=== PATIENT | female | born 1955 | race Caucasian/White ===

== ENCOUNTER 2018-11-03 11:45 | Emergency (ER) | payer OTHER ==
[~2018-11-03] VITALS: Ht 154.9 cm; Wt 98.9 kg
[~2018-11-03 11:45] MED LIST: CYCL5TAB PO; DIPH1TAB45 PO; LATANOPROST; LEVO500T69 PO; MELO-195 PO; METH4TAB PO; NF-DOR2% OD; ORPH100T PO; TML5OP2.5 OD; TRAM-21 PO; Z PACK; [UNRECOGNIZED DRUG - OTHER]
--- NOTE | 2018-11-03 12:05 | ED Integumentary General ---
General Chief Complaint: Skin/Wound Problems Stated Complaint: RASH Source: patient, family History of Present Illness Date Seen by Provider: Nov 03, 2018 Time Seen by Provider: 11:59 Initial Comments This 63-year-old female presents with a persistent rash over her thoracoabdominal area of 2 weeks' duration. Patient is complaining of persistent itching despite using aoty-wkk-dlelfdo medications for same. Patient denies associated fever or chills. She's had no new prescribed medi cations. She works in a f[employer]. There's been a recent case of zoster. Next Patient denies similar episode in the past. Allergies and Home Medications Allergies Coded Allergies: No Known Drug Allergies (Unverified , 07/18/13) Home Medications Cyclobenzaprine Hcl 5 Mg Tablet, 1 EACH PO Q8HR, (Reported) Levofloxacin 500 Mg Tab, 1 EACH PO DAILY Prescribed by: LETY MINA on 08/05/142116 Meloxicam 15 Mg Tablet, 15 MG PO DAILY, (Reported) Orphenadrine Citrate 100 Mg Tablet.sa, 100 MG PO BID FOR MUSCLE SPASMS Prescribed by: LETY MINA on 08/05/142116 Tramadol Hcl 50 Mg Tablet, 50 MG PO Q4H Prescribed by: LETY MINA on 08/05/142116 Patient Home Medication List Home Medication List Reviewed: Yes Review of Systems Review of Systems Constitutional: No chills, No fever EENTM: No ear pain Respiratory: No cough Cardiovascular: No chest pain Gastrointestinal: No abdominal pain, No diarrhea, No nausea, No vomiting Genitourinary: No dysuria, No frequency Musculoskeletal: no symptoms reported Skin: see HPI, rash Psychiatric/Neurological: No Symptoms Reported Endocrine: No Symptoms Reported Past Rdyhagh-Bvirnz-Tpptiz Hx Past Med/Social Hx: Reviewed Nursing Past Med/Soc Hx Patient Social History Recent Foreign Travel: No Contact w/Someone Who Travel: No Past Medical History Section, Eye Surgery, Tubal Ligation 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, Menopausal Irritable Bowel Cataract, Glaucoma Physical Exam Vital Signs Capillary Refill : General Appearance: WD/WN, no apparent distress HEENT: normal ENT inspection Neck: normal inspection Cardiovascular: regular rate, rhythm Respiratory: chest non-tender, lungs clear Gastrointestinal: normal bowel sounds, non tender, soft Back: normal inspection Extremities: normal range of motion Neurologic/Psychiatric: no motor/sensory deficits, alert Skin: normal color, warm/dry, rash (there is an erythematous resolving rash consisting of small circular erythematous excoriated areas primarily over the thoracoabdominal area. The initial lesions are resolving which were on the patient's left back in the lower thoracic region.) Skin Problem Location: torso Skin Problem Character: erythema, rash, urticarial Progress/Results/Core Measures Progress Progress Note : Time: 12:04 Progress Note I discussed findings with patient and her . It appears that the rash is in the process of resolving. It started approximately 2 weeks ago and no new lesions have been noted in the past week. I'll treat the patient with triamcinolone topically and Benadryl and Pepcid orally. As patient call her doctor Sunday and return if any problems Departure Impression Primary Impression: Rash Disposition: HOME, SELF-CARE Condition: Unchanged Departure-Patient Inst. Decision time for Depature: 12:05 Referrals: [facility] ([place]P/Family) Primary Care Physician Patient Instructions: Skin Rash (DC) Add. Discharge Instructions: Triamcinolone, Benadryl, and Pepcid as prescribed. Close follow-up with your caregiver at [facility] on Sunday. Return if any problems or questions. All discharge instructions reviewed with patient and/or family. Voiced understanding. Scripts Triamcinolone Acet (Triamcinolone Acetonide 0.1% Ointment) 15 Gm Oint 80 GM TP TID for Rash, #1 TUBE Prov: BEATRICE PENA MD 11/03/18 BEATRICE PENA MD Nov 03, 2018 12:05
[2018-11-03] MEDS ORDERED: TR1O15 TP (12:07)
[2018-11-03 12:11] VITALS: BP 148/79
== END 2018-11-03 12:11 | disposition home or self-care (01) ==
LOC: EDUNIT# 11:45 → ER 11:46
DX: R21 Rash and other nonspecific skin eruption (principal); K58.9 Irritable bowel syndrome, unspecified; Z98.51 Tubal ligation status
CPT/HCPCS: 99282

== ENCOUNTER 2019-04-20 17:50 | Emergency (ER) | payer OTHER ==
[~2019-04-20] VITALS: Ht 154 cm; Wt 100.7 kg
[~2019-04-20 17:50] MED LIST changes: +TR1O15 TP
--- NOTE | 2019-04-20 19:07 | ED Lower Extremity ---
General Chief Complaint: Lower Extremity Stated Complaint: R LEG SWELLING Nursing Triage Note: TO TRIAGE WITH COMPLAINS OF RIGHT LEG PAIN X2 WEEKS. STATES IT IS GETTING HARD TO WORK IN THE [employer] BECAUSE OF THE PAIN. Nursing Sepsis Screen: No Definite Risk Source: patient Exam Limitations: no limitations (KILLIAN MELTON) History of Present Illness Date Seen by Provider: Apr 20, 2019 Time Seen by Provider: 19:07 (KILLIAN MELTON) Initial Comments Pt complains of two weeks of increasing, diffuse lower extremity swelling and leg pain beyond the knee. Pain increases throughout the day with being on her feet/working and is achy in nature. Has not tried anything for the pain. Denies any prior cardiac work-up, history of interventions, chest pain, shortness of air or cough. Does admit she has to sit down to rest at work in order to catch her breath. Severity: moderate Pain/Injury Location: bilateral leg, bilateral knee, bilateral foot Modifying Factors: Improves With Rest (VIKAS MCGILL MED STUDENT) Initial Comments Has had increasing cough and states that she feels like she's had some fevers recently. 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 Onset: other (2 weeks) Modifying Factors: Improves With Rest; Worse With Other (prolonged standing) (SHAE MC MD) Allergies and Home Medications Allergies Coded Allergies: No Known Drug Allergies (Unverified , 11/03/18) Home Medications Furosemide 40 Mg Tablet, 40 MG PO DAILY Prescribed by: SHAE MC on 04/20/192119 Patient Home Medication List Home Medication List Reviewed: Yes (KILLIAN MELTON) Home Medication List Reviewed: Yes (VIKAS MCGILL MED STUDENT) Home Medication List Reviewed: Yes (SHAE MC MD) Review of Systems Constitutional: No chills, No fever, No malaise EENTM: No ear pain, No eye pain, No vision loss Respiratory: cough; No dyspnea on exertion, No short of breath Cardiovascular: No chest pain; edema; No palpitations Gastrointestinal: No abdominal pain, No nausea, No vomiting Musculoskeletal: see HPI; No back pain, No joint pain Psychiatric/Neurological: Denies Numbness, Denies Tingling (VIKAS MCGILL MED STUDENT) All Other Systems Reviewed Negative Unless Noted: Yes (SHAE MC MD) Past Atiovtn-Jubfnd-Nfjubx Hx Past Med/Social Hx: Reviewed Nursing Past Med/Soc Hx (SHAE MC MD) Patient Social History Alcohol Use: Denies Use Recreational Drug Use: No Smoking Status: Former Smoker 2nd Hand Smoke Exposure: Yes Recent Foreign Travel: No Contact w/Someone Who Travel: No Recent Infectious Disease Expo: No Recent Hopitalizations: No (KILLIAN MELTON) Immunizations Up To Date Tetanus Booster (TDap): Unknown (KILLIAN MELTON) Seasonal Allergies Seasonal Allergies: Yes (KILLIAN MELTON) Past Medical History Surgeries: Yes (EYE- CATARACTS, ) Section, Eye Surgery, Tubal Ligation Respiratory: No Cardiac: Yes (MURMUR WHEN YOUNG) Heart Murmur 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 Genitourinary: No Gastrointestinal: Yes Irritable Bowel Musculoskeletal: No Endocrine: No HEENT: Yes (SINUSITIS) Cataract, Glaucoma Cancer: No Psychosocial: No Integumentary: No Blood Disorders: No (KILLIAN MELTON) Family Medical History Reviewed Nursing Family Hx (SHAE MC MD) No Pertinent Family Hx (SHAE MC MD) Physical Exam Vital Signs Vital Signs - First Documented 04/20/19 17:50 Temp 36.7 Pulse 69 Resp 16 B/P (MAP) 166/81 (109) Pulse Ox 97 O2 Delivery Room Air (VIKAS MCGILLMED STUDENT) Vital Signs Capillary Refill : Less Than 3 Seconds (KILLIAN MELTON) Height, Weight, BMI Height: 5'1.00" Weight: 218lbs. oz. 98.825497ey; 42.00 BMI Method:Stated (KILLIAN MELTON) General Appearance: WD/WN, no apparent distress HEENT: TMs normal, pharyngeal erythema, other (b/l oblong pupils from cataract surgery, beefy red nasal septum ) Neck: non-tender, supple, lymphadenopathy (R) (posterior cervical ) Cardiovascular: regular rate, rhythm, no gallop, no murmur Respiratory: chest non-tender, lungs clear, normal breath sounds, no respirator y distress, no accessory muscle use Gastrointestinal: non tender, soft Back: no CVA tenderness, no vertebral tenderness Legs: bilateral leg soft tissue tenderness (diffuse tenderness to palpation ), bilateral leg swelling, bilateral leg other (+2 pitting pretibial edema ) Knees: bilateral knee pain, bilateral knee soft tissue tenderness Ankles: bilateral ankle normal range of motion, bilateral ankle no evidence of injury, bilateral ankle pain, bilateral ankle soft tissue tenderness, bilateral ankle swelling Feet: bilateral foot swelling (+3 pitting pedal edema ) Neurologic/Tendon: normal sensation, normal motor functions Neurologic/Psychiatric: alert, oriented x 3 Skin: normal color, warm/dry Lymphatic: no adenopathy (supra/infraclavicular) (VIKAS MCGILL,MED STUDENT) General Appearance: WD/WN, no apparent distress HEENT: TMs normal, pharyngeal erythema Neck: non-tender, supple Cardiovascular: regular rate, rhythm, no murmur Respiratory: lungs clear, normal breath sounds, no respiratory distress, no accessory muscle use Gastrointestinal: non tender, soft Neurologic/Psychiatric: alert, oriented x 3 Skin: normal color, warm/dry, other (bilateral lower extremity edema and about 2+ to the level below the knee.) (SHAE MC MD) Progress/Results/Core Measures Results/Orders Lab Results Laboratory Tests Test 04/20/19 19:30 Range/Units White Blood Count 4.3 4.3-11.0 10^3/uL Red Blood Count 4.22 L 4.35-5.85 10^6/uL Hemoglobin 13.4 11.5-16.0 G/DL Hematocrit 42 35-52 % Mean Corpuscular Volume 100 H 80-99 FL Mean Corpuscular Hemoglobin 32 25-34 PG Mean Corpuscular Hemoglobin Concent 32 32-36 G/DL Red Cell Distribution Width 12.5 10.0-14.5 % Platelet Count 238 130-400 10^3/uL Mean Platelet Volume 9.7 7.4-10.4 FL Neutrophils (%) (Auto) 53 42-75 % Lymphocytes (%) (Auto) 28 12-44 % Monocytes (%) (Auto) 15 H 0-12 % Eosinophils (%) (Auto) 3 0-10 % Basophils (%) (Auto) 1 0-10 % Neutrophils # (Auto) 2.3 1.8-7.8 X 10^3 Lymphocytes # (Auto) 1.2 1.0-4.0 X 10^3 Monocytes # (Auto) 0.7 0.0-1.0 X 10^3 Eosinophils # (Auto) 0.1 0.0-0.3 10^3/uL Basophils # (Auto) 0.0 0.0-0.1 10^3/uL Sodium Level 142 135-145 MMOL/L Potassium Level 4.1 3.6-5.0 MMOL/L Chloride Level 103 98-107 MMOL/L Carbon Dioxide Level 28 21-32 MMOL/L Anion Gap 11 5-14 MMOL/L Blood Urea Nitrogen 14 7-18 MG/DL Creatinine 0.84 0.60-1.30 MG/DL Estimat Glomerular Filtration Rate > 60 BUN/Creatinine Ratio 17 Glucose Level 92 70-105 MG/DL Calcium Level 8.7 8.5-10.1 MG/DL Corrected Calcium 8.9 8.5-10.1 MG/DL Total Bilirubin 0.4 0.1-1.0 MG/DL Aspartate Amino Transf (AST/SGOT) 19 5-34 U/L Alanine Aminotransferase (ALT/SGPT) 16 0-55 U/L Alkaline Phosphatase 112 40-136 U/L B-Type Natriuretic Peptide 50.1 <100.0 PG/ML Total Protein 6.8 6.4-8.2 GM/DL Albumin 3.8 3.2-4.5 GM/DL (VIKAS MCGILL,MED STUDENT) Vital Signs/I&O 04/20/19 17:50 Temp 36.7 Pulse 69 Resp 16 B/P (MAP) 166/81 (109) Pulse Ox 97 O2 Delivery Room Air (VIKAS MCGILL,MED STUDENT) Blood Pressure Mean: 109 Progress Progress Note : Time: 19:21 Progress Note Seen and evaluated. Ordering CBC,CMP with BNP. (VIKAS MCGILL,MED STUDENT) Progress Note : Progress Note I have seen and evaluated the patient and agree with above except as indicated. Have directed the plan of care. We will check basic labs, chest x-ray and have added influenza screen given her cough and report of subjective fevers. Monitor patient. 2114: Overall feeling better. We will give her 3 days of Lasix to help with the fluids and I will write her off for the next 2 days per her request. Lasix 40 mg by mouth now. Discharged home with return precautions. Patient verbalize understanding instructions and agreement with plan. (SHAE MC MD) Diagnostic Imaging Diagonstic Imaging: Xray Plain Films/CT/US/NM/MRI: chest Comments [facility] [place] NAME: [facility]HOMY [facility] REC#: [id number] PT STATUS: REG ER : 1955 PHYSICIAN: SHAE MC MD ADMIT DATE: 04/20/19/ER Signed Date of Exam:04/20/19 CHEST PA/LAT (2 VIEW) INDICATION: Congestion COMPARISON: None. FINDINGS: Frontal and lateral views the chest demonstrate clear lungs bilaterally. The heart size is normal. There is no pneumothorax. Osseous structures are normal. IMPRESSION: No acute findings. Normal chest. Dictated by: Dictated on workstation # [id number] Dict: 04/20/191941 Trans: 04/20/191941 [facility] [id number] Interpreted by: ANGELIQUE MAR Electronically signed by: ANGELIQUE MAR 04/20/191941 (VIKAS MCGILL,MED STUDENT) Departure Communication (Admissions) Patient care provided by by Hever Mc MD and Vikas Mcgill. (KILLIAN MELTON) Impression Primary Impression: Dependent edema Additional Impression: Upper respiratory infection Qualified Codes: J06.9 - Acute upper respiratory infection, unspecified Disposition: 01 HOME, SELF-CARE Condition: Improved Departure-Patient Inst. Decision time for Depature: 21:17 (SHAE MC MD) Referrals: [facility] [place] Primary Care Physician Patient Instructions: Dependent Edema (DC), Viral Upper Respiratory Infection, Adult (DC) Add. Discharge Instructions: All discharge instructions reviewed with patient and/or family. Voiced understanding. Take medications as directed. Avoid salt in your diet. Follow-up with your DrZaira in a few days for recheck. You should elevate your feet several times daily to reduce swelling. Return for worse pain, fever, vomiting, weakness, breathing problems or other concerns as needed. You may take Tylenol and/or ibuprofen as needed for fever or pain per package directions. You may use umff-art-ladwqdk Afrin nasal spray or the generic, 12 hour relief, 2 sprays to each nostril twice daily for 3 days only and then stop. Do not use for more than 3 days. Scripts Furosemide (Furosemide) 40 Mg Tablet 40 MG PO DAILY, #2 TAB 0 Refills Prov: SHAE MC MD 04/20/19 Work/School Note: Work Release Form Date Seen in the Emergency Department: Apr 20, 2019 Return to Work: Apr 23, 2019 Restrictions: No Restrictions KILLIAN MELTON Apr 20, 2019 19:07 VIKAS MCGILL,MED STUDENT Apr 20, 2019 19:23 SHAE MC MD Apr 20, 2019 20:34
[2019-04-20 19:41] LABS: BASOPHILS % (AUTO) 1 % (0-10); EOSINOPHILS # (AUTO) 0.1 10^3/uL (0.0-0.3); EOSINOPHILS % (AUTO) 3 % (0-10); HEMATOCRIT 42 % (35-52); HEMOGLOBIN 13.4 G/DL (11.5-16.0); LYMPHOCYTES # (AUTO) 1.2 X 10^3 (1.0-4.0); LYMPHOCYTES % (AUTO) 28 % (12-44); MEAN CORPUSCULAR HEMOGLOBIN 32 PG (25-34); MEAN CORPUSCULAR HGB CONC 32 G/DL (32-36); MEAN CORPUSCULAR VOLUME 100 FL (80-99); MEAN PLATELET VOLUME 9.7 FL (7.4-10.4); MONOCYTES # (AUTO) 0.7 X 10^3 (0.0-1.0); MONOCYTES % (AUTO) 15 % (0-12); NEUTROPHILS # (AUTO) 2.3 X 10^3 (1.8-7.8); NEUTROPHILS % (AUTO) 53 % (42-75); PLATELET COUNT 238 10^3/uL (130-400); RED CELL DISTRIBUTION WIDTH 12.5 % (10.0-14.5); WHITE BLOOD COUNT 4.3 10^3/uL (4.3-11.0)
--- NOTE | 2019-04-20 19:43 | Diagnostic Imaging Report ---
INDICATION: Congestion COMPARISON: None. FINDINGS: Frontal and lateral views the chest demonstrate clear lungs bilaterally. The heart size is normal. There is no pneumothorax. Osseous structures are normal. IMPRESSION: No acute findings. Normal chest. Dictated by: Dictated on workstation # [id number]
[2019-04-20 20:01] LABS: ALANINE AMINOTRANSFERASE 16 U/L (0-55); ALBUMIN 3.8 GM/DL (3.2-4.5); ALKALINE PHOSPHATASE 112 U/L (40-136); BILIRUBIN,TOTAL 0.4 MG/DL (0.1-1.0); BUN/CREATININE RATIO 17; CALCIUM 8.7 MG/DL (8.5-10.1); CARBON DIOXIDE 28 MMOL/L (21-32); CHLORIDE 103 MMOL/L (98-107); CREATININE SERUM 0.84 MG/DL (0.60-1.30); GFR ESTIMATED > 60; GLUCOSE 92 MG/DL (70-105); POTASSIUM 4.1 MMOL/L (3.6-5.0); SODIUM 142 MMOL/L (135-145); TOTAL PROTEIN 6.8 GM/DL (6.4-8.2)
[2019-04-20] MEDS ORDERED: FUROSEMIDE 40 MG (LASIX) TAB PO ONE (21:15)
[2019-04-20] MEDS ORDERED: FURO40TA4 PO (21:20)
[2019-04-20 21:48] VITALS: BP 155/80
== END 2019-04-20 21:49 | disposition home or self-care (01) ==
LOC: EDUNIT# 17:50 → ER 17:51
DX: R60.0 Localized edema (principal); J06.9 Acute upper respiratory infection, unspecified; K58.9 Irritable bowel syndrome, unspecified; Z87.891 Personal history of nicotine dependence; Z77.22 Contact with and (suspected) exposure to environmental tobacco smoke (acute) (chronic); Z98.51 Tubal ligation status
CPT/HCPCS: 36415; 71046; 80053; 83880; 85025; 87804

== ENCOUNTER → 2020-08-10 | Outpatient (CLI) | payer BC, OTHER ==
[~2020-08-10] MED LIST changes: +FURO40TA4 PO; +RT-ALBUTEROL SULF 2.5 MG/3 ML PRE-MIX VIAL INH ONE
== END ==
LOC: RT 08:00
PROVIDERS: ATTEND Nurse Practitioner Family
DX: R05 Cough (principal)
CPT/HCPCS: 94060; 94726; 94729

== ENCOUNTER 2020-12-07 05:39 | Outpatient (CLI) | payer OTHER ==
[~2020-12-07] VITALS: Ht 155 cm; Wt 102.7 kg
[~2020-12-07 05:39] MED LIST changes: -RT-ALBUTEROL SULF 2.5 MG/3 ML PRE-MIX VIAL INH ONE
[2020-12-09] MEDS ORDERED: MONT10TA32 PO (13:37)
[2020-12-09] MEDS ORDERED: TIOT4MIS5 IH (13:37)
[2020-12-09] MEDS ORDERED: RT-ALBUINH IH (13:37)
[2020-12-09] MEDS ORDERED: CETI10TA17 PO (13:37)
[2020-12-09] MEDS ORDERED: BUDE10.22 IH (13:37)
== END 2020-12-09 14:05 | disposition home or self-care (01) ==
LOC: PREOP 05:39
PROVIDERS: ATTEND Surgery
DX: Z01.818 Encounter for other preprocedural examination (principal)

== ENCOUNTER 2020-12-14 12:20 | Day surgery (SDC) | payer OTHER ==
[~2020-12-14] VITALS: Ht 154.9 cm; Wt 102.7 kg
[~2020-12-14 12:20] MED LIST changes: +BUDE10.22 IH; +CETI10TA17 PO; +MONT10TA32 PO; +RT-ALBUINH IH; +TIOT4MIS5 IH
[2020-12-14] MEDS ORDERED: LACTATED RINGERS 1,000 ML IV STA (12:30)
[2020-12-14 12:40] VITALS: BP 192/90
--- NOTE | 2020-12-14 13:04 | Progress Note-Pre Operative ---
Pre-Operative Progress Note H&P Reviewed The H&P was reviewed, patient examined and no changes noted. Date Seen by Provider: Dec 14, 2020 Time Seen by Provider: 13:04 Date H&P Reviewed: Dec 14, 2020 Time H&P Reviewed: 13:04 Pre-Operative Diagnosis: screening colonoscopy JOSEPHINE QUIROZ DO Dec 14, 2020 13:04
[2020-12-14] MEDS ORDERED: PROPOFOL INJECTION 50 ML IV ONE (14:05)
[2020-12-14 14:45] VITALS: BP_SYST 158; BP_SYST 173; BP_DIAS 130; BP_DIAS 76
[2020-12-14 15:10] VITALS: BP 173/76
--- NOTE | 2020-12-14 15:16 | Anesthesia-General Post-Op ---
MAC Patient Condition Mental Status/LOC: Same as Preop Cardiovascular: Satisfactory Nausea/Vomiting: Absent Respiratory: Satisfactory Pain: Controlled Complications: Absent Post Op Complications Complications None Follow Up Care/Instructions Patient Instructions None needed. Anesthesiology Discharge Order Discharge Order Patient is doing well, no complaints, stable vital signs, no apparent adverse anesthesia problems. No complications reported per nursing. OLU WALLACE CRNA Dec 14, 2020 15:16
--- NOTE | 2020-12-14 15:21 | Progress Note-Post Operative ---
Post-Operative Progess Note Surgeon (s)/Staff Interpreter (s) Surgeon JOSEPHINE QUIROZ DO Staff Interpreter: na Pre-Operative Diagnosis screening colonoscopy Post-Operative Diagnosis colon polyps Procedure & Operative Findings Date of Procedure 12/14/20 Procedure Performed/Findings colonoscopy c hot bx polypectomy x 4 Anesthesia Type per membership administrator Estimated Blood Loss Estimated blood loss (mL): none Specimens/Packing Specimens Removed colon polyps JOSEPHINE QUIROZ DO Dec 14, 2020 15:21
--- NOTE | 2020-12-14 15:22 | Discharge Inst-Simple/Standard ---
Discharge Inst-Standard Patient Instructions/Follow Up Plan of Care/Instructions/FU: 2-3 weeks Adrianna Activity as Tolerated: Yes Discharge Diet: Regular Diet JOSEPHINE QUIROZ DO Dec 14, 2020 15:21
[2020-12-14 15:35] VITALS: BP 173/76
--- NOTE | 2020-12-15 01:30 | OPERATIVE REPORT ---
DATE OF SERVICE: 12/14/2020 PREOPERATIVE DIAGNOSIS: Screening colonoscopy. POSTOPERATIVE DIAGNOSIS: Colon polyps. PROCEDURE: Colonoscopy with hot biopsy polypectomy x4. SURGEON: Josephine Rodas DO ANESTHESIA: Per MEDICAL CODER. ESTIMATED BLOOD LOSS: None. COMPLICATIONS: None. SPECIMENS: Colon polyps. INDICATIONS: The patient is a 65-year-old female needing screening colonoscopy. She understands risks and benefits of procedure and wished to proceed with procedure. Consent was signed in the chart. DESCRIPTION OF PROCEDURE: The patient was taken to the endoscopy suite, placed in left lateral recumbent position. Timeout was performed. Digital rectal exam was performed. No palpable polyps, masses or ulcerations. Scope was inserted in the rectum, advanced all the way to cecum with minimal difficulty. Prep was adequate with irrigation and suction. Scope was then slowly retracted back. No polyps, masses or ulcerations within the cecum. In the ascending colon, a small polyp was present, which hot biopsy polypectomy was performed. Scope was then continuously retracted back. No polyps, masses or ulcerations within the remainder of the ascending, transverse colon. In the descending colon, another small polyp was present, which hot biopsy polypectomy was performed. Scope was then continuously retracted back. No polyps, masses or ulcerations within the remainder of descending and sigmoid colon. Once in the rectum, two other polyps were noted, which hot biopsy polypectomy was performed. Scope was then slowly retracted back until completely removed. The patient tolerated procedure well without any complications, taken to recovery room in stable condition. RECOMMENDATIONS: The patient will need repeat colonoscopy in 5 years. Any issues before that be seen at that time. 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
== END 2020-12-14 15:35 | disposition home or self-care (01) ==
LOC: ENDO 12:20
PROVIDERS: ATTEND Surgery
DX: Z12.11 Encounter for screening for malignant neoplasm of colon (principal); D12.2 Benign neoplasm of ascending colon; K63.5 Polyp of colon; K62.1 Rectal polyp; K21.9 Gastro-esophageal reflux disease without esophagitis; E66.01 Morbid (severe) obesity due to excess calories; J43.9 Emphysema, unspecified; F17.210 Nicotine dependence, cigarettes, uncomplicated; Z68.41 Body mass index [BMI] 40.0-44.9, adult; Z79.899 Other long term (current) drug therapy; Z82.49 Family history of ischemic heart disease and other diseases of the circulatory system